=== PATIENT | female | born 1960 | race Caucasian/White ===

== ENCOUNTER 2019-03-16 08:30 | Day surgery (SDC) | payer OTHER ==
[~2019-03-16 08:30] MED LIST: ALLEGRA60 MG PO; ASPIRIN EC81 MG PO; ATENOLOL25 MG PO; BREO ELLIPTA 101 INH IN; CELEXA10 MG PO; CELEXA40 M1 PO; CETIRIZINE10 MG PO; PAXIL10 MG OR; TRAMADOL HCL50 MG OR; TRIAMCINOLON0.11 EX; VENTOLIN HFA IN; XANAX0.25 MG PO
[2019-03-16 10:38] VITALS: BP 122/59
== END 2019-03-16 10:47 | disposition home or self-care (01) | DRG 951 ==
LOC: ENDO 08:30
PROVIDERS: ATTEND Surgery
PROC: 0DJD8ZZ Inspection of Lower Intestinal Tract, Via Natural or Artificial Opening Endoscopic (ICD-10-PCS; principal; 2019-03-16)
DX: Z12.11 Encounter for screening for malignant neoplasm of colon (principal); I10 Essential (primary) hypertension

== ENCOUNTER 2019-05-04 | Emergency (ER) | payer OTHER | END 2019-05-04 17:44 | disposition home or self-care (01) | DRG 605 | DX: S80.02XA Contusion of left knee, initial encounter (principal); S80.01XA Contusion of right knee, initial encounter; S49.92XA Unspecified injury of left shoulder and upper arm, initial encounter; M25.552 Pain in left hip; J44.9 Chronic obstructive pulmonary disease, unspecified; W01.0XXA Fall on same level from slipping, tripping and stumbling without subsequent striking against object, initial encounter; Y92.009 Unspecified place in unspecified non-institutional (private) residence as the place of occurrence of the external cause | CPT/HCPCS: L1830 ==

== ENCOUNTER 2021-07-23 08:22 | Day surgery (SDC) | payer OTHER ==
[~2021-07-23 08:22] MED LIST changes: +PRENATAL 11 PO
[2021-07-23 13:40] VITALS: BP 162/79
== END 2021-07-23 13:30 | disposition home or self-care (01) | DRG 489 ==
LOC: ORM 08:22
PROVIDERS: ATTEND Orthopaedic Surgery
PROC: 0SBD4ZZ Excision of Left Knee Joint, Percutaneous Endoscopic Approach (ICD-10-PCS; principal; 2021-07-23)
PROC: 0SBD4ZZ Excision of Left Knee Joint, Percutaneous Endoscopic Approach (ICD-10-PCS; 2021-07-23)
DX: M23.222 Derangement of posterior horn of medial meniscus due to old tear or injury, left knee (principal); M23.252 Derangement of posterior horn of lateral meniscus due to old tear or injury, left knee; M65.862 Other synovitis and tenosynovitis, left lower leg; M94.262 Chondromalacia, left knee; S83.512A Sprain of anterior cruciate ligament of left knee, initial encounter; J44.9 Chronic obstructive pulmonary disease, unspecified; X58.XXXA Exposure to other specified factors, initial encounter; Z87.891 Personal history of nicotine dependence
CPT/HCPCS: J0131